=== PATIENT | female | born 2000 | race Two or more races ===

== ENCOUNTER → 2024-01-20 | Outpatient (CLI) | payer OTHER ==
[2024-01-20 13:15] LABS: HEMATOCRIT 36.3 % (36.0-47.0); HEMOGLOBIN 12.2 g/dl (12.0-15.5); MEAN CORPUSCULAR HEMOGLOBIN 31.4 pg (27.0-33.0); MEAN CORPUSCULAR HGB CONC 33.6 g/dl (32.0-36.5); MEAN CORPUSCULAR VOLUME 93.3 fl (80.0-96.0); PLATELET COUNT, AUTOMATED 227 10^3/uL (150-450); RED BLOOD COUNT 3.89 10^6/uL (4.00-5.40); WHITE BLOOD COUNT 7.7 10^3/uL (4.0-10.0)
[2024-01-20 13:39] LABS: FREE T4 1.13 NG/DL (0.89-1.76)
[2024-01-20 13:41] LABS: THYROID STIMULATING HORMONE 3.268 uIU/ML (0.55-4.78)
[2024-01-20 14:01] LABS: HIV 1&2 SCREEN NEGATIVE (NEGATIVE)
[2024-01-20 14:13] LABS: HEPATITIS C VIRUS ABY INDEX 0.09 INDEX (<0.8)
[2024-01-20 14:51] LABS: GC DNA AMPLIFICATION NEGATIVE (NEGATIVE)
== END ==
LOC: M PLALAB 10:37
PROVIDERS: ATTEND Advanced Practice Midwife
DX: Z34.01 Encounter for supervision of normal first pregnancy, first trimester (principal)

== ENCOUNTER → 2024-03-19 | Outpatient (CLI) | payer OTHER | LOC: M WHC 08:35 | PROVIDERS: ATTEND Obstetrics & Gynecology | DX: Z34.80 Encounter for supervision of other normal pregnancy, unspecified trimester (principal) ==

== ENCOUNTER → 2024-05-28 | Outpatient (CLI) | payer OTHER ==
[2024-05-28 18:37] LABS: HEMATOCRIT 32.3 % (36.0-47.0); HEMOGLOBIN 10.9 g/dl (12.0-15.5); MEAN CORPUSCULAR HEMOGLOBIN 32.6 pg (27.0-33.0); MEAN CORPUSCULAR HGB CONC 33.7 g/dl (32.0-36.5); MEAN CORPUSCULAR VOLUME 96.7 fl (80.0-96.0); PLATELET COUNT, AUTOMATED 203 10^3/uL (150-450); RED BLOOD COUNT 3.34 10^6/uL (4.00-5.40); WHITE BLOOD COUNT 9.4 10^3/uL (4.0-10.0)
[2024-05-28 19:07] LABS: GLUCOSE CHALLENGE TEST 1 HOUR 82 MG/DL (LESS THAN 140)
[2024-05-28 19:17] LABS: THYROID STIMULATING HORMONE 1.103 uIU/ML (0.55-4.78)
[2024-05-28 19:19] LABS: FREE T4 1.18 NG/DL (0.89-1.76)
[2024-05-28 19:40] LABS: HIV 1&2 SCREEN NEGATIVE (NEGATIVE)
[2024-05-28 19:44] LABS: GC DNA AMPLIFICATION NEGATIVE (NEGATIVE)
[2024-05-28 19:47] LABS: HEPATITIS C VIRUS ABY INDEX 0.06 INDEX (<0.8)
== END ==
LOC: M PLALAB 15:03
PROVIDERS: ATTEND Obstetrics & Gynecology
DX: Z34.80 Encounter for supervision of other normal pregnancy, unspecified trimester (principal)

== ENCOUNTER → 2024-07-15 | Outpatient (REF) | payer OTHER | LOC: M SFHCWAGY 12:34 | PROVIDERS: ATTEND Obstetrics & Gynecology | DX: Z36.89 Encounter for other specified antenatal screening (principal); Z3A.36 36 weeks gestation of pregnancy ==

== ENCOUNTER 2024-08-11 15:19 | Inpatient (IN) | payer OTHER ==
[~2024-08-11] VITALS: Ht 160 cm; Wt 72.9 kg
[2024-08-11] MEDS ORDERED: PRENTAB9 PO (15:30)
[2024-08-11] MEDS ORDERED: SELE200T15 PO (15:36)
[2024-08-11] MEDS ORDERED: IRON27TA2 PO (15:36)
[2024-08-11] MEDS ORDERED: SERT25TA85 PO (15:36)
[2024-08-11] MEDS ORDERED: HOME MED LIST COMPLETE! XX SCH (15:40)
[2024-08-11 15:42] VITALS: BP 128/76
[2024-08-11] MEDS ORDERED: OXYTOCIN DRIP 30 UNITS in IV 1 EA IV PRN (16:05)
[2024-08-11] MEDS ORDERED: TRANEXAMIC ACID INJection 1,000 MG in NS 100 ML IV PRN (16:05)
[2024-08-11] MEDS ORDERED: METHYLERGONOVINE MALEATE 0.2MG/ML 1ML VIAL IM PRN (16:05)
[2024-08-11 16:15] LABS: HEMATOCRIT 31.5 % (36.0-47.0); HEMOGLOBIN 10.6 g/dl (12.0-15.5); MEAN CORPUSCULAR HEMOGLOBIN 31.1 pg (27.0-33.0); MEAN CORPUSCULAR HGB CONC 33.7 g/dl (32.0-36.5); MEAN CORPUSCULAR VOLUME 92.4 fl (80.0-96.0); PLATELET COUNT, AUTOMATED 183 10^3/uL (150-450); RED BLOOD COUNT 3.41 10^6/uL (4.00-5.40); WHITE BLOOD COUNT 8.9 10^3/uL (4.0-10.0)
[2024-08-11 16:45] VITALS: BP 117/59
[2024-08-11] MEDS: miSOPROStol 50MCG 1/2 TABLET PO SCH (16:46)
[2024-08-11 19:26] LABS: HEPATITIS C VIRUS ABY INDEX < 0.02 INDEX (<0.8)
[2024-08-11 20:04] VITALS: BP 125/66
[2024-08-11 20:50] VITALS: BP 110/63
[2024-08-11 21:51] VITALS: BP 118/53
[2024-08-11 23:12] VITALS: BP 134/76
[2024-08-12] VITALS (49 sets, daily range): BP systolic 101–161; BP diastolic 51–97; O2SAT 98
[2024-08-12] MEDS ORDERED: FENTANYL 2MCG/ML ROPIVACAINE 0.2% IN 0.9% NACL 100ML IVBAG As Ordered ONE (09:41)
[2024-08-12] MEDS ORDERED: EPIDURAL/PCA KEYS XX PRN (09:45)
[2024-08-12] MEDS ORDERED: ePHEDrine SULFATE 25 MG/5 ML(5MG/ML) SYRINGE IVP PRN (09:45)
[2024-08-12] MEDS ORDERED: ONDANSETRON 4MG 2ML VIAL IV PRN (09:45)
[2024-08-12] MEDS ORDERED: diphenhydrAMINE 50MG/ML VIAL IV PRN (09:45)
[2024-08-12] MEDS ORDERED: NALOXONE INJ 0.4MG/1ML VIAL IV PRN (09:45)
[2024-08-12] MEDS ORDERED: LR 500 ML IV PRN (09:45)
[2024-08-12] MEDS: FENTANYL/ROPIVACAINE/NACL BAG 100 ML EPIDURAL SCH (10:33)
[2024-08-12] MEDS: OXYTOCIN DRIP 30 UNITS in IV 1 EA IV SCH (11:00)
[2024-08-12] MEDS: LR 1,000 ML IV SCH (12:20)
[2024-08-12] MEDS: LIDOCAINE 1% MDV 20ML VIAL INFIL PRN (18:56)
[2024-08-12 18:57] LABS: CORD GAS ABE A -6.3; CORD GAS HCO3 A 20.2 MMOL/L; CORD GAS O2 SAT A 36.6 %; CORD GAS PCO2 A 43.1 mmHg; CORD GAS PH A 7.288 UNITS; CORD GAS PO2 A 18.8 mmHg; CORD GAS TCO2 A 21.5 MMOL/L
[2024-08-12 19:00] LABS: CORD GAS ABE V -6.6; CORD GAS HCO3 V 19.6 MMOL/L; CORD GAS O2 SAT V 39.7 %; CORD GAS PCO2 V 41.9 mmHg; CORD GAS PH V 7.289 UNITS; CORD GAS PO2 V 18.9 mmHg; CORD GAS SBC V 17.8 MMOL/L; CORD GAS TCO2 V 20.9 MMOL/L
[2024-08-12] MEDS ORDERED: IBUPROFEN 600MG TAB PO PRN (19:25)
[2024-08-12] MEDS ORDERED: RHOGAM 300MCG (1500IU) INJ IM SCH (19:25)
[2024-08-12] MEDS ORDERED: ACETAMINOPHEN 325 MG TAB PO PRN (19:25)
[2024-08-12] MEDS ORDERED: METHYLERGONOVINE MALEATE 0.2 MG TAB PO PRN (19:25)
[2024-08-12] MEDS: IBUPROFEN 800 MG TAB PO PRN (20:38)
[2024-08-12] MEDS: DIBUCAINE 1% OINTMENT 30GM TOP PRN (22:50)
[2024-08-12] MEDS: DOCUSATE SODIUM 100MG CAPSULE PO PRN (23:31)
[2024-08-12] MEDS: ACETAMINOPHEN 500 MG TAB PO PRN (23:35)
[2024-08-13 06:03] VITALS: BP 119/68; O2SAT 98
[2024-08-13] MEDS: PRENATAL VITAMINS CHEWABLE TABLET PO SCH (09:18)
[2024-08-13] MEDS: SERTRALINE HCL 25 MG TABLET PO SCH (09:19)
[2024-08-13 18:00] VITALS: BP 118/59; O2SAT 98
[2024-08-14 06:57] VITALS: BP 122/58; O2SAT 96
[2024-08-14] MEDS: MEASLES,MUMPS,RUBELLA VACCINE INJ (MMR-II) SC.IMMUN ONE (09:00)
== END 2024-08-14 13:20 | disposition home or self-care (01) | DRG 807 ==
LOC: M LDI 15:19 → M OBS 08-12 22:23
PROVIDERS: ADMIT Obstetrics & Gynecology; ATTEND Specialist
PROC: 0KQM0ZZ Repair Perineum Muscle, Open Approach (ICD-10-PCS; 2024-08-11)
PROC: 3E0P7GC Introduction of Other Therapeutic Substance into Female Reproductive, Via Natural or Artificial Opening (ICD-10-PCS; 2024-08-11)
PROC: 10E0XZZ Delivery of Products of Conception, External Approach (ICD-10-PCS; principal; 2024-08-12)
DX: O48.0 Post-term pregnancy (principal); Z37.0 Single live birth; Z3A.40 40 weeks gestation of pregnancy; Z79.899 Other long term (current) drug therapy; O69.81X0 Labor and delivery complicated by cord around neck, without compression, not applicable or unspecified; O70.1 Second degree perineal laceration during delivery

== ENCOUNTER 2024-12-16 04:00 | Emergency (ER) | payer OTHER ==
[~2024-12-16] VITALS: Ht 165.1 cm; Wt 60.2 kg
[~2024-12-16 04:00] MED LIST: IRON27TA2 PO; PRENTAB9 PO; SELE200T15 PO; SERT25TA85 PO
[2024-12-16 05:13] VITALS: TEMP 97.8
[2024-12-16 06:00] VITALS: BP 117/65; O2SAT 99
== END 2024-12-16 07:11 | disposition home or self-care (01) ==
LOC: M ED 04:00
DX: J06.9 Acute upper respiratory infection, unspecified (principal); Z11.52 Encounter for screening for COVID-19; F41.9 Anxiety disorder, unspecified; F32.A Depression, unspecified; Z79.810 Long term (current) use of selective estrogen receptor modulators (SERMs); Z79.899 Other long term (current) drug therapy